=== PATIENT | female | born 1990 | race African-American/Black ===

== ENCOUNTER 2020-05-05 14:38 | Emergency (ER) | payer MEDICAID ==
[~2020-05-05] VITALS: Ht 172.7 cm; Wt 59.0 kg
[2020-05-05] MEDS ORDERED: ACETAMINOPHEN 325MG TABLET PO STA (15:43)
[2020-05-05] MEDS ORDERED: SODIUM CHLORIDE 0.9% 1,000 ML IV ONE (15:45)
[2020-05-05 16:55] LABS: BASOPHILS % 0.5 % (0.0-2.0); EOSINOPHILS % 0.1 % (0.0-5.0); HEMATOCRIT. 25.3 % (36.0-48.0); HEMOGLOBIN. 7.4 g/dL (12.0-16.0); LYMPHOCYTES % 9.2 % (20.0-50.0); MEAN CORPUSCULAR HEMOGLOBIN 17.2 pg (28.0-32.0); MEAN CORPUSCULAR VOLUME 58.6 fL (81.0-99.0); MEAN PLATELET VOLUME 8.8 fl (7.4-10.4); MONOCYTES % 5.5 % (2.0-8.0); NEUTROPHILS % 84.7 % (40.0-76.0); PLATELET 357 x1000/uL (130-400); RED BLOOD CELL COUNT 4.31 mill/uL (4.2-5.4); RED CELL DISTRIBUTION WIDTH 19.1 % (11.6-14.6)
[2020-05-05 16:56] LABS: CHLORIDE 103 mEq/L (98-107)
[2020-05-05 17:14] LABS: PLATELET ESTIMATE NORMAL
[2020-05-05 17:23] VITALS: BP 120/78
== END 2020-05-05 17:54 | disposition left against medical advice (07) ==
LOC: ER 14:46
DX: M54.5 Low back pain (principal); R50.9 Fever, unspecified
CPT/HCPCS: 36415; 71045; 80053; 83690; 85025; 93005; 96360; 99285; J7030